=== PATIENT | female | born 1945 | race Two or more races ===

== ENCOUNTER 2017-12-24 22:21 | Emergency (ER) | payer MEDICARE, OTHER ==
[~2017-12-24] VITALS: Ht 167.6 cm; Wt 81.6 kg
[2017-12-24 23:09] LABS: Basophils # (auto) 0.1 uL; Basophils % (auto) 0.8 % (0.0-2.0); Eosinophils # (auto) 0.4 uL; Eosinophils % (auto) 5.7 % (0.0-7.0); Hematocrit 39.6 % (41.0-53.0); Lymphocytes # (auto) 1.6 uL; Lymphocytes % (auto) 24.2 % (10.0-50.0); Mean Corpuscular Hemoglobin 29.8 pg (28.0-32.0); Mean Corpuscular Hgb Conc. 32.8 g/dL (32.0-36.0); Mean Corpuscular Volume 90.9 fL (80.0-100.0); Monocytes # (auto) 0.5 uL; Neutrophils # (auto) 4.1 uL; Neutrophils % (auto) 61.3 % (37.0-80.0); Nucleated Red Blood Cells % 0.1 %; Platelet Count (auto) 190 10^3/uL (140-450); Red Blood Cells 4.36 10^6/uL (4.5-5.90); Red Cell Distribution Width 13.9 % (11.8-14.3); White Blood Cell 6.7 10^3/uL (4.4-10.8)
[2017-12-24 23:31] LABS: Alanine Aminotransferase 23 U/L (16-61); Alkaline Phosphatase 87 U/L (45-117); Anion Gap 8 (5-15); Aspartate Aminotransferase 20 U/L (15-37); BUN/Creatinine Ratio 16.9; Bilirubin, Total 0.2 mg/dL (0.2-1.0); Blood Urea Nitrogen 15 mg/dL (7-18); Calcium 8.9 mg/dL (8.5-10.1); Carbon Dioxide 23 mmol/L (21-32); Chloride 110 mmol/L (98-107); GFR African American 108 mL/min; GFR Non-African American 89 mL/min; Glucose 109 mg/dL (74-106); Magnesium 2.5 mg/dL (1.6-2.6); Potassium 3.8 mmol/L (3.5-5.1); Sodium 141 mmol/L (136-145); Total Protein 6.6 g/dL (6.4-8.2)
[2017-12-25 01:10] LABS: INR 0.91 (0.9-1.15); Partial Thromboplastin Time 22.7 sec (22.64-33.71); Prothrombin Time 9.9 sec (9.37-12.3)
[2017-12-25] MEDS ORDERED: ALUM & MAG HYDROX-SIMETH LIQ(MAALOX) 30 ML PO ONE (07:15)
[2017-12-25] MEDS ORDERED: LIDOCAINE VISCOUS 2% 15ML UD PO ONE (07:15)
[2017-12-25] MEDS ORDERED: DONNATAL 5ml ORAL Elix (BELLADONNA ALK-PHENOBARB) PO ONE (07:15)
[2017-12-25 07:31] VITALS: BP 122/76
== END 2017-12-25 09:47 | disposition home or self-care (01) ==
LOC: EDBD 22:21 → EDSEX 22:29 → ER 22:29
DX: K29.70 Gastritis, unspecified, without bleeding (principal); K21.9 Gastro-esophageal reflux disease without esophagitis; R07.89 Other chest pain; Z88.1 Allergy status to other antibiotic agents; Z90.49 Acquired absence of other specified parts of digestive tract
CPT/HCPCS: 36415; 71046; 80053; 83735; 84484; 85025; 85610; 85730; 93005; 94761

== ENCOUNTER 2021-03-25 00:44 | Inpatient (IN) | payer MEDICARE, BC ==
[~2021-03-25] VITALS: Ht 154.9 cm; Wt 63.1 kg
[2021-03-25 01:23] LABS: Basophils # (auto) 0.1 10 ^3/uL (0-0.2); Basophils % (auto) 0.6 % (0.0-2.0); Eosinophils # (auto) 0 10 ^3/uL (0-0.8); Eosinophils % (auto) 0.3 % (0.0-7.0); Hematocrit 40.5 % (36.0-46.0); Hemoglobin 13.1 g/dL (12.2-16.2); Mean Corpuscular Hemoglobin 27.1 pg (28.0-32.0); Mean Corpuscular Hgb Conc. 32.4 g/dL (32.0-36.0); Mean Corpuscular Volume 83.8 fL (80.0-100.0); Monocytes # (auto) 0.5 10 ^3/uL (0-1.3); Monocytes % (auto) 4.8 % (0.0-12.0); Neutrophils % (auto) 84.3 % (37.0-80.0); Platelet Count (auto) 296 10^3/uL (140-450); Red Blood Cells 4.84 10^6/uL (4.0-5.20); Red Cell Distribution Width 15.6 % (11.8-14.3); White Blood Cell 9.5 10^3/uL (4.4-10.8)
[2021-03-25 01:40] LABS: Albumin 4.1 g/dL (3.4-5.0); Calcium 11.2 mg/dL (8.5-10.1); Potassium 3.3 mmol/L (3.5-5.1)
[2021-03-25 01:42] LABS: Lactic Acid w/Reflex 2.2 mmol/L (0.4-2.0)
[2021-03-25 01:43] LABS: Bilirubin, Total 0.3 mg/dL (0.2-1.0); Total Protein 8.8 g/dL (6.4-8.2)
[2021-03-25 01:49] LABS: Urine Bacteria FEW /hpf (None Seen); Urine Blood Negative /uL (Negative); Urine Budding Yeast MODERATE /hpf (None Seen); Urine Hyaline Cast MOD /lpf (0 - 2); Urine Mucus FEW (None Seen); Urine WBC 153 /hpf (0 - 5)
[2021-03-25] MEDS ORDERED: cefTRIAXone 1GM/50ML D5W 50 ML IV ONE (05:15)
[2021-03-25] MEDS ORDERED: LACTATED RINGER'S 1,000 ML IV ONE (06:00)
[2021-03-25] MEDS ORDERED: FAMOTIDINE (10MG/ML) 2ML VL IV ONE (06:15)
[2021-03-25] MEDS: POTASSIUM CHL 20MEQ/100ML 100 ML IV SCH ×2 (06:19→08:00)
[2021-03-25] MEDS ORDERED: SODIUM CHLORIDE 0.9% 1,000 ML IV ONE (08:15)
[2021-03-25] MEDS ORDERED: metroNIDAZOLE 500MG/100ML 100 ML IV ONE (08:15)
[2021-03-25] MEDS: D5W/SOD CHL 0.45%/KCL 20MEQ 1,000 ML IV SCH ×3 (09:30→20:23)
[2021-03-25] MEDS: FAMOTIDINE (10MG/ML) 2ML VL IV SCH ×2 (09:31→21:18)
[2021-03-25] MEDS: cefTRIAXone 1GM/50ML D5W 50 ML IV SCH (09:31)
[2021-03-25] MEDS ORDERED: FAMO40TA7 PO (11:46)
[2021-03-25 11:48] VITALS: BP 127/67
[2021-03-25 13:24] VITALS: BP 127/67
[2021-03-25] MEDS: metroNIDAZOLE 500MG/100ML 100 ML IV SCH ×2 (14:20→21:18)
[2021-03-25] MEDS: METOCLOPRAMIDE HCL 5MG/ml INJ 2ml VIAL IV SCH ×2 (14:20→21:18)
[2021-03-25 17:04] VITALS: BP 119/57
[2021-03-25] MEDS: ONDANSETRON HCL 4 MG/2 ML VIAL IV PRN (17:20)
[2021-03-25] MEDS: MORPHINE SULF INJ 2 MG/ML SYRINGE 1ML IV PRN (19:37)
[2021-03-25 22:00] VITALS: BP 138/65
[2021-03-26 05:00] VITALS: BP 99/53
[2021-03-26] MEDS: METOCLOPRAMIDE HCL 5MG/ml INJ 2ml VIAL IV SCH ×3 (05:11→22:03)
[2021-03-26] MEDS: metroNIDAZOLE 500MG/100ML 100 ML IV SCH ×3 (05:11→22:03)
[2021-03-26 06:08] LABS: Basophils # (auto) 0.1 10 ^3/uL (0-0.2); Basophils % (auto) 1.3 % (0.0-2.0); Eosinophils # (auto) 0.3 10 ^3/uL (0-0.8); Eosinophils % (auto) 5.5 % (0.0-7.0); Hematocrit 32.4 % (36.0-46.0); Hemoglobin 10.8 g/dL (12.2-16.2); Lymphocytes # (auto) 1.6 10 ^3/uL (0.4-5.4); Lymphocytes % (auto) 29.8 % (10.0-50.0); Mean Corpuscular Hemoglobin 28.2 pg (28.0-32.0); Mean Corpuscular Hgb Conc. 33.2 g/dL (32.0-36.0); Mean Corpuscular Volume 84.8 fL (80.0-100.0); Monocytes # (auto) 0.5 10 ^3/uL (0-1.3); Monocytes % (auto) 8.9 % (0.0-12.0); Neutrophils # (auto) 2.9 10 ^3/uL (1.6-8.6); Neutrophils % (auto) 54.5 % (37.0-80.0); Platelet Count (auto) 199 10^3/uL (140-450); Red Blood Cells 3.82 10^6/uL (4.0-5.20); Red Cell Distribution Width 15.3 % (11.8-14.3); White Blood Cell 5.3 10^3/uL (4.4-10.8)
[2021-03-26 06:35] LABS: Potassium 3.3 mmol/L (3.5-5.1)
[2021-03-26 06:42] LABS: Albumin 2.8 g/dL (3.4-5.0); Bilirubin, Total 0.3 mg/dL (0.2-1.0); Calcium 9.1 mg/dL (8.5-10.1); Total Protein 6.1 g/dL (6.4-8.2)
[2021-03-26 08:00] VITALS: BP 106/63
[2021-03-26] MEDS ORDERED: GASTROGRAFIN 120 ML SOL ONE (08:12)
[2021-03-26 09:00] VITALS: BP 106/63
[2021-03-26] MEDS: FAMOTIDINE (10MG/ML) 2ML VL IV SCH ×2 (10:11→22:03)
[2021-03-26] MEDS: cefTRIAXone 1GM/50ML D5W 50 ML IV SCH (10:12)
[2021-03-26 13:00] VITALS: BP 132/64
[2021-03-26] MEDS: D5W/SOD CHL 0.45%/KCL 20MEQ 1,000 ML IV SCH (16:00)
[2021-03-26 17:00] VITALS: BP 128/68
[2021-03-26] MEDS: ONDANSETRON HCL 4 MG/2 ML VIAL IV PRN (19:37)
[2021-03-26] MEDS: ACETAMINOPHEN 500 MG TAB PO PRN (19:37)
[2021-03-26] MEDS: LOPERAMIDE HCL 2 MG CAP PO PRN (22:04)
[2021-03-26 23:53] VITALS: BP 127/75
[2021-03-27] MEDS: MORPHINE SULF INJ 2 MG/ML SYRINGE 1ML IV PRN ×5 (00:34→23:01)
[2021-03-27] MEDS: D5W/SOD CHL 0.45%/KCL 20MEQ 1,000 ML IV SCH ×3 (01:38→21:17)
[2021-03-27] MEDS: ONDANSETRON HCL 4 MG/2 ML VIAL IV PRN ×2 (01:38→09:52)
[2021-03-27] MEDS: LOPERAMIDE HCL 2 MG CAP PO PRN (04:53)
[2021-03-27 05:38] VITALS: BP 131/70
[2021-03-27] MEDS: METOCLOPRAMIDE HCL 5MG/ml INJ 2ml VIAL IV SCH ×3 (05:44→21:17)
[2021-03-27] MEDS: metroNIDAZOLE 500MG/100ML 100 ML IV SCH ×3 (05:44→21:17)
[2021-03-27 07:20] LABS: Albumin 3.1 g/dL (3.4-5.0); Calcium 9.1 mg/dL (8.5-10.1); Magnesium 2.5 mg/dL (1.6-2.6); Potassium 3.3 mmol/L (3.5-5.1)
[2021-03-27 07:24] LABS: BUN/Creatinine Ratio 15.7; Bilirubin, Total 0.3 mg/dL (0.2-1.0); Total Protein 6.9 g/dL (6.4-8.2)
[2021-03-27] MEDS: cefTRIAXone 1GM/50ML D5W 50 ML IV SCH (08:00)
[2021-03-27 09:00] VITALS: BP 122/57
[2021-03-27] MEDS: FAMOTIDINE (10MG/ML) 2ML VL IV SCH (09:44)
[2021-03-27] MEDS ORDERED: POTASSIUM CHLORIDE 20 MEQ, LIDOCAINE 1% (LOCAL ANESTH.) 2 ML in SODIUM CHL 0.9% 100 ML IV ONE (11:30)
[2021-03-27 13:00] VITALS: BP 115/58
[2021-03-27 17:00] VITALS: BP 115/62
[2021-03-27] MEDS: PANTOPRAZOLE 40 MG/10 ML VIAL INJ IV SCH (21:17)
[2021-03-27 22:00] VITALS: BP 123/62
[2021-03-28 05:00] VITALS: BP 134/64
[2021-03-28] MEDS: METOCLOPRAMIDE HCL 5MG/ml INJ 2ml VIAL IV SCH ×3 (05:26→22:37)
[2021-03-28] MEDS: metroNIDAZOLE 500MG/100ML 100 ML IV SCH ×3 (05:26→22:36)
[2021-03-28] MEDS: D5W/SOD CHL 0.45%/KCL 20MEQ 1,000 ML IV SCH ×3 (06:32→15:58)
[2021-03-28 07:15] LABS: Basophils # (auto) 0.1 10 ^3/uL (0-0.2); Basophils % (auto) 0.9 % (0.0-2.0); Eosinophils # (auto) 0.2 10 ^3/uL (0-0.8); Eosinophils % (auto) 2.1 % (0.0-7.0); Hematocrit 35.1 % (36.0-46.0); Hemoglobin 11.5 g/dL (12.2-16.2); Lymphocytes # (auto) 0.9 10 ^3/uL (0.4-5.4); Lymphocytes % (auto) 10.8 % (10.0-50.0); Mean Corpuscular Hemoglobin 27.7 pg (28.0-32.0); Mean Corpuscular Hgb Conc. 32.8 g/dL (32.0-36.0); Mean Corpuscular Volume 84.3 fL (80.0-100.0); Monocytes # (auto) 0.7 10 ^3/uL (0-1.3); Monocytes % (auto) 8.5 % (0.0-12.0); Neutrophils # (auto) 6.6 10 ^3/uL (1.6-8.6); Neutrophils % (auto) 77.7 % (37.0-80.0); Nucleated Red Blood Cells % 0.1 %; Platelet Count (auto) 190 10^3/uL (140-450); Red Blood Cells 4.17 10^6/uL (4.0-5.20); Red Cell Distribution Width 15.5 % (11.8-14.3); White Blood Cell 8.5 10^3/uL (4.4-10.8)
[2021-03-28 07:29] LABS: Calcium 9.3 mg/dL (8.5-10.1); Potassium 3.4 mmol/L (3.5-5.1)
[2021-03-28 07:32] LABS: BUN/Creatinine Ratio 17.6
[2021-03-28 09:00] VITALS: BP 129/69
[2021-03-28 09:11] LABS: INR 1.1 (0.9-1.15)
[2021-03-28 09:13] LABS: Partial Thromboplastin Time < 20.0 sec (23.0-31.2)
[2021-03-28] MEDS: cefTRIAXone 1GM/50ML D5W 50 ML IV SCH (09:21)
[2021-03-28] MEDS: PANTOPRAZOLE 40 MG/10 ML VIAL INJ IV SCH ×2 (10:23→22:37)
[2021-03-28 13:00] VITALS: BP 115/59
[2021-03-28] MEDS: MORPHINE SULF INJ 2 MG/ML SYRINGE 1ML IV PRN ×2 (15:09→17:22)
[2021-03-28 17:00] VITALS: BP 125/57
[2021-03-28 22:00] VITALS: BP 114/65
[2021-03-29] MEDS: MORPHINE SULF INJ 2 MG/ML SYRINGE 1ML IV PRN (01:44)
[2021-03-29] MEDS: ONDANSETRON HCL 4 MG/2 ML VIAL IV PRN ×2 (02:09→09:40)
[2021-03-29 05:00] VITALS: BP 130/67
[2021-03-29] MEDS: metroNIDAZOLE 500MG/100ML 100 ML IV SCH ×3 (06:06→23:36)
[2021-03-29] MEDS: METOCLOPRAMIDE HCL 5MG/ml INJ 2ml VIAL IV SCH ×2 (06:06→14:00)
[2021-03-29 06:44] LABS: Calcium 9.4 mg/dL (8.5-10.1); Magnesium 2.2 mg/dL (1.6-2.6); Potassium 3.3 mmol/L (3.5-5.1)
[2021-03-29] MEDS ORDERED: LIDOCAINE VISCOUS 2% 15ML UD ONE (08:27)
[2021-03-29] MEDS ORDERED: MIDAZOLAM HCL 5 MG/ML-1ML VIAL ONE (08:27)
[2021-03-29] MEDS ORDERED: diphenhdrAMINE HCL 50 MG/1 ML VL ONE (08:27)
[2021-03-29] MEDS ORDERED: fentaNYL CITRATE 100 MCG/2 ML VL ONE ×2 (08:27→12:10)
[2021-03-29 08:46] VITALS: BP 119/63
[2021-03-29] MEDS: cefTRIAXone 1GM/50ML D5W 50 ML IV SCH (09:39)
[2021-03-29] MEDS: PANTOPRAZOLE 40 MG/10 ML VIAL INJ IV SCH ×2 (10:00→23:37)
[2021-03-29] MEDS ORDERED: MIDAZOLAM HCL 1MG/1ML-2 ML VIAL ONE (12:11)
[2021-03-29] MEDS ORDERED: POTASSIUM CHL 20MEQ/100ML 100 ML IV SCH (12:15)
[2021-03-29] MEDS ORDERED: LIDOCAINE 2% (LOCAL ANESTH.) PF 5ml SDV ONE (12:58)
[2021-03-29] MEDS ORDERED: PROPOFOL 10 MG/ML 20 ML IV ONE (12:58)
[2021-03-29] MEDS ORDERED: ONDANSETRON HCL 4 MG/2 ML VIAL IV PRN (13:15)
[2021-03-29] MEDS ORDERED: HYDROmorphone HCL 2 MG/ML VL IV PRN (13:15)
[2021-03-29] MEDS ORDERED: GADOTERATE MEG 7.5 MMOL/15ml INJ (0.5MMOL/ml) IV ONE (13:21)
[2021-03-29] MEDS ORDERED: TPN PER PHARMACY 0 ML IV SCH (16:00)
[2021-03-29] MEDS ORDERED: LIDOCAINE 1% (LOCAL ANESTH.) PF 5ml SDV ID ONE (16:00)
[2021-03-29 16:38] VITALS: BP 151/71
[2021-03-29] MEDS: InsuLIN REG 1unit/0.01ml Soln (100units/ml) SC SCH (18:00)
[2021-03-29] MEDS ORDERED: DEXTROSE (50%) 50ML SYRG IV SCH (18:00)
[2021-03-29] MEDS: ACCU-CHEK COMFORT CURVE STRIP VI SCH (18:27)
[2021-03-29 20:00] VITALS: BP 129/71
[2021-03-29] MEDS: AMINO ACID INFUSION IN D10W 1,000 ML IV NR ×2 (20:13→21:17)
[2021-03-29 22:00] VITALS: BP 127/63
[2021-03-29] MEDS: SODIUM CHLOR 0.9% PF (SALINE LOCK) 10ML VIAL/SYR IV SCH (22:00)
[2021-03-30] MEDS: D5W/SOD CHL 0.45%/KCL 20MEQ 1,000 ML IV SCH (03:15)
[2021-03-30 05:00] VITALS: BP 131/63
[2021-03-30] MEDS: InsuLIN REG 1unit/0.01ml Soln (100units/ml) SC SCH ×5 (06:00→23:36)
[2021-03-30] MEDS: ACCU-CHEK COMFORT CURVE STRIP VI SCH ×5 (06:00→23:36)
[2021-03-30] MEDS: metroNIDAZOLE 500MG/100ML 100 ML IV SCH ×3 (06:32→22:31)
[2021-03-30 06:56] LABS: Hematocrit 34.8 % (36.0-46.0); Hemoglobin 11.2 g/dL (12.2-16.2); Potassium 3.1 mmol/L (3.5-5.1)
[2021-03-30 07:00] LABS: Magnesium 1.8 mg/dL (1.6-2.6)
[2021-03-30 07:06] LABS: Albumin 2.5 g/dL (3.4-5.0); BUN/Creatinine Ratio 19.7; Bilirubin, Total 0.3 mg/dL (0.2-1.0); Calcium 8.9 mg/dL (8.5-10.1); Pre Albumin 12.5 mg/dL (20.0-40.0)
[2021-03-30 08:28] VITALS: BP 130/67
[2021-03-30] MEDS: ENOXAPARIN SOD 40 MG/0.4 ML SYRINGE SC SCH (08:51)
[2021-03-30] MEDS: cefTRIAXone 1GM/50ML D5W 50 ML IV SCH (08:51)
[2021-03-30] MEDS: PANTOPRAZOLE 40 MG/10 ML VIAL INJ IV SCH ×2 (08:51→22:31)
[2021-03-30] MEDS: POTASSIUM CHL 20MEQ/100ML 100 ML IV SCH ×2 (10:32→12:01)
[2021-03-30] MEDS: SODIUM CHLOR 0.9% PF (SALINE LOCK) 10ML VIAL/SYR IV SCH ×2 (10:32→22:00)
[2021-03-30] MEDS ORDERED: MAGNESIUM SULFATE 1GM/100ML 100 ML IV ONE (12:15)
[2021-03-30 13:00] VITALS: BP 121/66
[2021-03-30] MEDS ORDERED: SODIUM PHOSPHATES 40 MEQ in D5W 5% 250 ML IV ONE (13:00)
[2021-03-30 17:00] VITALS: BP 123/63
[2021-03-30] MEDS ORDERED: TPN PER PHARMACY IV NR ×10 (20:00)
[2021-03-30 22:00] VITALS: BP 137/72
[2021-03-31 05:00] VITALS: BP 123/55
[2021-03-31] MEDS ORDERED: ACETAMINOPHEN 325 MG TAB PO ONE (05:00)
[2021-03-31] MEDS: metroNIDAZOLE 500MG/100ML 100 ML IV SCH ×3 (05:37→22:21)
[2021-03-31] MEDS: ACCU-CHEK COMFORT CURVE STRIP VI SCH ×3 (05:58→18:21)
[2021-03-31] MEDS: InsuLIN REG 1unit/0.01ml Soln (100units/ml) SC SCH ×3 (05:58→18:20)
[2021-03-31 07:44] LABS: Albumin 2.4 g/dL (3.4-5.0); Calcium 8.6 mg/dL (8.5-10.1); Magnesium 2.2 mg/dL (1.6-2.6)
[2021-03-31 07:48] LABS: BUN/Creatinine Ratio 18.8; Bilirubin, Total 0.3 mg/dL (0.2-1.0); Phosphorus 1.3 mg/dL (2.5-4.90); Total Protein 5.9 g/dL (6.4-8.2)
[2021-03-31 07:51] LABS: Potassium 2.8 mmol/L (3.5-5.1)
[2021-03-31 08:45] VITALS: BP 122/60
[2021-03-31] MEDS: cefTRIAXone 1GM/50ML D5W 50 ML IV SCH (10:46)
[2021-03-31] MEDS: PANTOPRAZOLE 40 MG/10 ML VIAL INJ IV SCH ×2 (10:46→22:21)
[2021-03-31] MEDS: ENOXAPARIN SOD 40 MG/0.4 ML SYRINGE SC SCH (10:46)
[2021-03-31] MEDS: POTASSIUM CHL 20MEQ/100ML 100 ML IV SCH ×3 (10:47→15:15)
[2021-03-31] MEDS: SODIUM CHLOR 0.9% PF (SALINE LOCK) 10ML VIAL/SYR IV SCH ×2 (10:48→22:21)
[2021-03-31 13:33] VITALS: BP 127/64
[2021-03-31] MEDS ORDERED: SODIUM PHOSPHATES 40 MEQ in D5W 5% 250 ML IV ONE (15:00)
[2021-03-31] MEDS: ACETAMINOPHEN 500 MG TAB PO PRN (16:45)
[2021-03-31 17:00] VITALS: BP 124/57
[2021-03-31] MEDS ORDERED: TPN PER PHARMACY IV NR ×10 (20:00)
[2021-03-31 22:00] VITALS: BP 125/52
[2021-04-01] MEDS: InsuLIN REG 1unit/0.01ml Soln (100units/ml) SC SCH ×4 (01:09→18:03)
[2021-04-01 05:00] VITALS: BP 133/63
[2021-04-01] MEDS: metroNIDAZOLE 500MG/100ML 100 ML IV SCH ×3 (05:31→20:34)
[2021-04-01] MEDS: ACCU-CHEK COMFORT CURVE STRIP VI SCH ×4 (06:00→18:01)
[2021-04-01 09:00] VITALS: BP 127/56
[2021-04-01 09:01] LABS: Potassium 3.3 mmol/L (3.5-5.1)
[2021-04-01 09:18] LABS: Albumin 2.1 g/dL (3.4-5.0); BUN/Creatinine Ratio 19.4; Bilirubin, Total 0.3 mg/dL (0.2-1.0); Calcium 8.4 mg/dL (8.5-10.1); Magnesium 2.3 mg/dL (1.6-2.6); Phosphorus 1.3 mg/dL (2.5-4.90); Total Protein 5.8 g/dL (6.4-8.2)
[2021-04-01] MEDS: cefTRIAXone 1GM/50ML D5W 50 ML IV SCH (10:11)
[2021-04-01] MEDS: PANTOPRAZOLE 40 MG/10 ML VIAL INJ IV SCH ×2 (10:11→20:34)
[2021-04-01] MEDS: ENOXAPARIN SOD 40 MG/0.4 ML SYRINGE SC SCH ×2 (10:12→20:35)
[2021-04-01] MEDS: SODIUM CHLOR 0.9% PF (SALINE LOCK) 10ML VIAL/SYR IV SCH ×2 (10:13→20:34)
[2021-04-01] MEDS ORDERED: NYSTATIN (MOUTH-THROAT) 500,000 UNITS/5 ML SUSP MT ONE (10:45)
[2021-04-01] MEDS ORDERED: FLUCONAZOLE 200MG/100ML 100 ML IV ONE (10:45)
[2021-04-01] MEDS ORDERED: POTASSIUM PHOSPHATE 44 MEQ in D5W 5% 250 ML IV ONE (11:00)
[2021-04-01 11:20] LABS: Basophils # (auto) 0 10 ^3/uL (0-0.2); Basophils % (auto) 0.2 % (0.0-2.0); Eosinophils # (auto) 0.4 10 ^3/uL (0-0.8); Eosinophils % (auto) 2.5 % (0.0-7.0); Hematocrit 34.3 % (36.0-46.0); Hemoglobin 11.1 g/dL (12.2-16.2); Lymphocytes # (auto) 0.3 10 ^3/uL (0.4-5.4); Mean Corpuscular Hemoglobin 27.1 pg (28.0-32.0); Mean Corpuscular Hgb Conc. 32.5 g/dL (32.0-36.0); Mean Corpuscular Volume 83.2 fL (80.0-100.0); Monocytes # (auto) 0.8 10 ^3/uL (0-1.3); Monocytes % (auto) 4.6 % (0.0-12.0); Neutrophils # (auto) 15.4 10 ^3/uL (1.6-8.6); Neutrophils % (auto) 90.7 % (37.0-80.0); Platelet Count (auto) 120 10^3/uL (140-450); Red Blood Cells 4.12 10^6/uL (4.0-5.20); Red Cell Distribution Width 15.6 % (11.8-14.3); White Blood Cell 16.9 10^3/uL (4.4-10.8)
[2021-04-01 13:00] VITALS: BP 123/58
[2021-04-01 14:50] LABS: Urine Bacteria NONE SEEN /hpf (None Seen); Urine Blood TRACE /uL (Negative); Urine Mucus FEW (None Seen); Urine Specific Gravity 1.026 (1.001-1.035); Urine WBC 14 /hpf (0 - 5)
[2021-04-01 17:00] VITALS: BP 124/63
[2021-04-01] MEDS: NYSTATIN (MOUTH-THROAT) 500,000 UNITS/5 ML SUSP MT SCH ×2 (18:04→20:34)
[2021-04-01] MEDS ORDERED: TPN PER PHARMACY IV NR ×10 (20:00)
[2021-04-01 22:00] VITALS: BP 121/60
[2021-04-02] MEDS: ACCU-CHEK COMFORT CURVE STRIP VI SCH ×4 (00:09→17:54)
[2021-04-02] MEDS: InsuLIN REG 1unit/0.01ml Soln (100units/ml) SC SCH ×4 (00:12→17:55)
[2021-04-02 05:00] VITALS: BP 132/66
[2021-04-02] MEDS: NYSTATIN (MOUTH-THROAT) 500,000 UNITS/5 ML SUSP MT SCH ×4 (05:07→21:07)
[2021-04-02] MEDS: metroNIDAZOLE 500MG/100ML 100 ML IV SCH ×3 (05:07→21:07)
[2021-04-02 06:13] LABS: Basophils # (auto) 0 10 ^3/uL (0-0.2); Basophils % (auto) 0.3 % (0.0-2.0); Eosinophils % (auto) 11.3 % (0.0-7.0); Hematocrit 34.6 % (36.0-46.0); Hemoglobin 11.8 g/dL (12.2-16.2); Lymphocytes # (auto) 0.6 10 ^3/uL (0.4-5.4); Lymphocytes % (auto) 6.6 % (10.0-50.0); Mean Corpuscular Hemoglobin 28.2 pg (28.0-32.0); Mean Corpuscular Hgb Conc. 34.2 g/dL (32.0-36.0); Mean Corpuscular Volume 82.5 fL (80.0-100.0); Monocytes # (auto) 0.7 10 ^3/uL (0-1.3); Monocytes % (auto) 7.1 % (0.0-12.0); Neutrophils # (auto) 6.9 10 ^3/uL (1.6-8.6); Neutrophils % (auto) 74.7 % (37.0-80.0); Platelet Count (auto) 142 10^3/uL (140-450); Red Blood Cells 4.19 10^6/uL (4.0-5.20); Red Cell Distribution Width 15.7 % (11.8-14.3); White Blood Cell 9.3 10^3/uL (4.4-10.8)
[2021-04-02 06:39] LABS: Albumin 2.1 g/dL (3.4-5.0); BUN/Creatinine Ratio 19.4; Bilirubin, Total 0.2 mg/dL (0.2-1.0); Calcium 8.9 mg/dL (8.5-10.1); Magnesium 2.4 mg/dL (1.6-2.6); Phosphorus 2.5 mg/dL (2.5-4.90); Total Protein 6.1 g/dL (6.4-8.2)
[2021-04-02 09:00] VITALS: BP 117/62
[2021-04-02] MEDS: cefTRIAXone 1GM/50ML D5W 50 ML IV SCH (09:44)
[2021-04-02] MEDS: ENOXAPARIN SOD 40 MG/0.4 ML SYRINGE SC SCH (09:44)
[2021-04-02] MEDS: PANTOPRAZOLE 40 MG/10 ML VIAL INJ IV SCH ×2 (09:44→21:07)
[2021-04-02] MEDS: FLUCONAZOLE 200MG/100ML 100 ML IV SCH (09:44)
[2021-04-02] MEDS: SODIUM CHLOR 0.9% PF (SALINE LOCK) 10ML VIAL/SYR IV SCH ×2 (09:44→21:07)
[2021-04-02] MEDS ORDERED: ENOXAPARIN SOD 60 MG/0.6 ML SYRINGE SC ONE (10:30)
[2021-04-02 13:00] VITALS: BP 150/87
[2021-04-02 17:00] VITALS: BP 136/71
[2021-04-02] MEDS ORDERED: TPN PER PHARMACY IV NR ×10 (20:00)
[2021-04-02] MEDS: ENOXAPARIN SOD 60 MG/0.6 ML SYRINGE SC SCH (21:07)
[2021-04-02 22:00] VITALS: BP 118/66
[2021-04-03] MEDS: ACCU-CHEK COMFORT CURVE STRIP VI SCH ×4 (04:45→17:22)
[2021-04-03] MEDS: InsuLIN REG 1unit/0.01ml Soln (100units/ml) SC SCH ×4 (04:47→17:55)
[2021-04-03] MEDS: metroNIDAZOLE 500MG/100ML 100 ML IV SCH ×3 (04:48→22:07)
[2021-04-03] MEDS: NYSTATIN (MOUTH-THROAT) 500,000 UNITS/5 ML SUSP MT SCH ×4 (04:48→22:07)
[2021-04-03 05:00] VITALS: BP 129/64
[2021-04-03 06:01] LABS: Potassium 4.4 mmol/L (3.5-5.1)
[2021-04-03 06:10] LABS: Albumin 2.2 g/dL (3.4-5.0); BUN/Creatinine Ratio 24.2; Bilirubin, Total 0.3 mg/dL (0.2-1.0); Calcium 9.1 mg/dL (8.5-10.1); Magnesium 2.5 mg/dL (1.6-2.6); Phosphorus 2.4 mg/dL (2.5-4.90); Total Protein 6.2 g/dL (6.4-8.2)
[2021-04-03 08:30] VITALS: BP 122/70
[2021-04-03] MEDS: cefTRIAXone 1GM/50ML D5W 50 ML IV SCH (09:39)
[2021-04-03] MEDS: PANTOPRAZOLE 40 MG/10 ML VIAL INJ IV SCH ×2 (09:39→22:07)
[2021-04-03] MEDS: SODIUM CHLOR 0.9% PF (SALINE LOCK) 10ML VIAL/SYR IV SCH ×2 (09:40→22:07)
[2021-04-03] MEDS: ENOXAPARIN SOD 60 MG/0.6 ML SYRINGE SC SCH ×2 (09:40→22:07)
[2021-04-03] MEDS ORDERED: MICONAZOLE NITRATE 2 % VAGINAL CREAM 45 GM PV ONE (10:30)
[2021-04-03] MEDS: FLUCONAZOLE 200MG/100ML 100 ML IV SCH (11:00)
[2021-04-03] MEDS ORDERED: SODIUM PHOSPHATES 20 MEQ in SODIUM CHL 0.9% 100 ML IV ONE (12:00)
[2021-04-03 12:30] VITALS: BP 126/72
[2021-04-03] MEDS: MORPHINE SULF INJ 2 MG/ML SYRINGE 1ML IV PRN (16:31)
[2021-04-03 17:00] VITALS: BP 114/69
[2021-04-03] MEDS ORDERED: TPN PER PHARMACY IV NR ×10 (20:00)
[2021-04-03] MEDS ORDERED: MICONAZOLE NITRATE 2 % VAGINAL CREAM 45 GM PV SCH (22:00)
[2021-04-03 22:25] VITALS: BP 117/59
== END 2021-04-03 23:38 | disposition short-term general hospital (02) | DRG 374 ==
LOC: ER 00:44 → OVERFLOW 08:49 → CENTRAL 11:27 → TELE-CENTR 03-30 03:39
PROVIDERS: ADMIT Nurse Practitioner Acute Care; ATTEND Internal Medicine
PROC: 0DB78ZX Excision of Stomach, Pylorus, Via Natural or Artificial Opening Endoscopic, Diagnostic (ICD-10-PCS; 2021-03-29)
PROC: 0DB58ZX Excision of Esophagus, Via Natural or Artificial Opening Endoscopic, Diagnostic (ICD-10-PCS; 2021-03-29)
PROC: 02HV33Z Insertion of Infusion Device into Superior Vena Cava, Percutaneous Approach (ICD-10-PCS; 2021-03-29)
PROC: 0DB98ZX Excision of Duodenum, Via Natural or Artificial Opening Endoscopic, Diagnostic (ICD-10-PCS; principal; 2021-03-29 12:20)
PROC: 0D9670Z Drainage of Stomach with Drainage Device, Via Natural or Artificial Opening (ICD-10-PCS; 2021-03-30)
DX: C17.0 Malignant neoplasm of duodenum (principal); J69.0 Pneumonitis due to inhalation of food and vomit; A41.9 Sepsis, unspecified organism; N17.0 Acute kidney failure with tubular necrosis; I82.220 Acute embolism and thrombosis of inferior vena cava; K56.609 Unspecified intestinal obstruction, unspecified as to partial versus complete obstruction; E44.0 Moderate protein-calorie malnutrition; J90 Pleural effusion, not elsewhere classified; K22.10 Ulcer of esophagus without bleeding; K80.10 Calculus of gallbladder with chronic cholecystitis without obstruction; N30.00 Acute cystitis without hematuria; Z20.822 Contact with and (suspected) exposure to COVID-19; E86.0 Dehydration; K21.00 Gastro-esophageal reflux disease with esophagitis, without bleeding; K44.9 Diaphragmatic hernia without obstruction or gangrene; E04.2 Nontoxic multinodular goiter; E87.6 Hypokalemia; E83.52 Hypercalcemia; M79.3 Panniculitis, unspecified; I70.0 Atherosclerosis of aorta; K76.89 Other specified diseases of liver; M19.90 Unspecified osteoarthritis, unspecified site; B37.9 Candidiasis, unspecified; K29.70 Gastritis, unspecified, without bleeding; Z79.899 Other long term (current) drug therapy; Z79.891 Long term (current) use of opiate analgesic; Z79.01 Long term (current) use of anticoagulants; Z98.49 Cataract extraction status, unspecified eye; Z88.8 Allergy status to other drugs, medicaments and biological substances; Z90.49 Acquired absence of other specified parts of digestive tract
CPT/HCPCS: 36415; 36569; 71045; 74018; 74176; 74183; 74250; 76705; 78226; 80048; 80053; 81001; 82040; 82150; 82962; 83605; 83690; 83735; 83970; 84100; 84132; 84443; 84478; 84484; 85014; 85018; 85025; 85610; 85730; 87040; 87086; 87426; 93005; 96361; 96365; 96367; 96375; C9113; G0378; J0696; J1450; J1815; J2001; J2250; J2405; J2704; J3480; J3490; J7060

== ENCOUNTER 2021-07-12 04:16 | Inpatient (IN) | payer MEDICARE, BC ==
[~2021-07-12] VITALS: Ht 157.5 cm; Wt 48.2 kg
[~2021-07-12 04:16] MED LIST: FAMO40TA7 PO
[2021-07-12] MEDS ORDERED: VANCOMYCIN HCL 125MG/5ML ORAL SOL PO ONE (05:00)
[2021-07-12] MEDS ORDERED: SODIUM CHLORIDE 0.9% 1,000 ML IV ONE (05:00)
[2021-07-12] MEDS ORDERED: metroNIDAZOLE 500MG/100ML 100 ML IV ONE (05:15)
[2021-07-12 06:19] LABS: Basophils # (auto) 0 10 ^3/uL (0-0.2); Eosinophils # (auto) 0.2 10 ^3/uL (0-0.8); Monocytes # (auto) 0.5 10 ^3/uL (0-1.3); White Blood Cell 3.9 10^3/uL (4.4-10.8)
[2021-07-12 06:22] LABS: Basophils % (auto) 0.9 % (0.0-2.0); Eosinophils % (auto) 5.2 % (0.0-7.0); Hematocrit 34.1 % (36.0-46.0); Hemoglobin 10.7 g/dL (12.2-16.2); Lymphocytes % (auto) 25.6 % (10.0-50.0); Mean Corpuscular Hemoglobin 25.5 pg (28.0-32.0); Mean Corpuscular Hgb Conc. 31.6 g/dL (32.0-36.0); Mean Corpuscular Volume 80.7 fL (80.0-100.0); Monocytes % (auto) 11.9 % (0.0-12.0); Neutrophils # (auto) 2.2 10 ^3/uL (1.6-8.6); Neutrophils % (auto) 56.4 % (37.0-80.0); Nucleated Red Blood Cells % 0.3 %; Red Blood Cells 4.22 10^6/uL (4.0-5.20)
[2021-07-12 06:30] LABS: INR 1.09 (0.9-1.15); Partial Thromboplastin Time 24.7 sec (23.6-33.0)
[2021-07-12 06:35] LABS: Albumin 2.9 g/dL (3.4-5.0); Calcium 10.2 mg/dL (8.5-10.1); Potassium 3.5 mmol/L (3.5-5.1)
[2021-07-12 06:36] LABS: BUN/Creatinine Ratio 11.9
[2021-07-12 06:39] LABS: Bilirubin, Total 0.3 mg/dL (0.2-1.0); Total Protein 7.1 g/dL (6.4-8.2)
[2021-07-12 08:03] LABS: Urine Bacteria NONE SEEN /hpf (None Seen); Urine Blood Negative /uL (Negative); Urine Hyaline Cast FEW /lpf (0 - 2); Urine Mucus FEW (None Seen); Urine Specific Gravity 1.008 (1.001-1.035); Urine WBC 13 /hpf (0 - 5)
[2021-07-12] MEDS ORDERED: NITROGLYCERIN 0.4 MG SL TAB SL PRN (08:45)
[2021-07-12] MEDS ORDERED: ACETAMINOPHEN 500 MG TAB PO PRN (08:45)
[2021-07-12] MEDS ORDERED: MORPHINE SULFATE INJECTION 2 MG/ML SYRG IV PRN ×2 (08:45)
[2021-07-12] MEDS: PANTOPRAZOLE 40 MG/10 ML VIAL INJ IV SCH (10:25)
[2021-07-12] MEDS: ENOXAPARIN SOD 60 MG/0.6 ML SYRINGE SC SCH ×2 (10:26→21:12)
[2021-07-12] MEDS: VANCOMYCIN HCL 125MG/5ML ORAL SOL PO SCH ×3 (12:00→21:12)
[2021-07-12] MEDS: NYSTATIN (MOUTH-THROAT) 500,000 UNITS/5 ML SUSP MT SCH ×3 (12:58→21:12)
[2021-07-12] MEDS: Ensure HIGH Protein Chocolate 8oz Bottle PO SCH ×2 (14:35→18:27)
[2021-07-12 14:48] VITALS: BP 104/48
[2021-07-12] MEDS: metroNIDAZOLE 500MG/100ML 100 ML IV SCH ×2 (16:57→21:12)
[2021-07-12] MEDS ORDERED: PROC10TA2 PO (18:54)
[2021-07-12] MEDS ORDERED: [UNRECOGNIZED DRUG - CODE] PO (18:54)
[2021-07-12] MEDS ORDERED: NYS5LQ MT (18:54)
[2021-07-12] MEDS ORDERED: ENO40SY SC (18:54)
[2021-07-12] MEDS ORDERED: ONDA-144 PO (18:54)
[2021-07-12] MEDS ORDERED: TRIA0.02 TOP (18:54)
[2021-07-12] MEDS ORDERED: [UNRECOGNIZED DRUG - CODE] PO (18:54)
[2021-07-12 22:09] VITALS: BP 122/63
[2021-07-13 05:12] VITALS: BP 124/67
[2021-07-13 05:17] LABS: Basophils # (auto) 0 10 ^3/uL (0-0.2); Eosinophils # (auto) 0.2 10 ^3/uL (0-0.8); Lymphocytes # (auto) 0.8 10 ^3/uL (0.4-5.4); Monocytes # (auto) 0.4 10 ^3/uL (0-1.3); Neutrophils # (auto) 0.8 10 ^3/uL (1.6-8.6); Red Cell Distribution Width 19.6 % (11.8-14.3); White Blood Cell 2.3 10^3/uL (4.4-10.8)
[2021-07-13 05:20] LABS: Basophils % (auto) 1.4 % (0.0-2.0); Eosinophils % (auto) 8.9 % (0.0-7.0); Hematocrit 31.6 % (36.0-46.0); Hemoglobin 9.9 g/dL (12.2-16.2); Lymphocytes % (auto) 37.3 % (10.0-50.0); Mean Corpuscular Hgb Conc. 31.3 g/dL (32.0-36.0); Mean Corpuscular Volume 83.2 fL (80.0-100.0); Monocytes % (auto) 18.2 % (0.0-12.0); Neutrophils % (auto) 34.2 % (37.0-80.0); Nucleated Red Blood Cells % 0.6 %
[2021-07-13] MEDS: NYSTATIN (MOUTH-THROAT) 500,000 UNITS/5 ML SUSP MT SCH ×4 (05:24→20:44)
[2021-07-13] MEDS: metroNIDAZOLE 500MG/100ML 100 ML IV SCH ×3 (05:24→20:44)
[2021-07-13] MEDS: VANCOMYCIN HCL 125MG/5ML ORAL SOL PO SCH ×4 (05:25→20:44)
[2021-07-13 05:41] LABS: Anion Gap 11 (5-15); BUN/Creatinine Ratio 7.3; Blood Urea Nitrogen 3 mg/dL (7-18); Calcium 9.2 mg/dL (8.5-10.1); Carbon Dioxide 18 mmol/L (21-32); Chloride 114 mmol/L (98-107); GFR African American 194 mL/min; GFR Non-African American 161 mL/min; Glucose 88 mg/dL (74-106); Sodium 143 mmol/L (136-145)
[2021-07-13 05:51] LABS: Potassium 2.6 mmol/L (3.5-5.1)
[2021-07-13] MEDS: Ensure HIGH Protein Chocolate 8oz Bottle PO SCH ×3 (08:22→17:50)
[2021-07-13] MEDS: ENOXAPARIN SOD 60 MG/0.6 ML SYRINGE SC SCH ×2 (08:53→20:44)
[2021-07-13] MEDS: PANTOPRAZOLE 40 MG/10 ML VIAL INJ IV SCH (08:53)
[2021-07-13] MEDS: POTASSIUM CHL 20MEQ/100ML 100 ML IV SCH ×3 (08:53→21:18)
[2021-07-13 09:00] VITALS: BP 113/58
[2021-07-13 13:00] VITALS: BP 127/68
[2021-07-13 17:00] VITALS: BP 117/62
[2021-07-13] MEDS ORDERED: POTASSIUM CHL 20MEQ/100ML 100 ML IV SCH (20:30)
[2021-07-13 22:00] VITALS: BP 110/56
[2021-07-14 05:00] VITALS: BP 99/58
[2021-07-14] MEDS: metroNIDAZOLE 500MG/100ML 100 ML IV SCH ×3 (05:07→21:12)
[2021-07-14] MEDS: NYSTATIN (MOUTH-THROAT) 500,000 UNITS/5 ML SUSP MT SCH ×4 (05:07→21:12)
[2021-07-14] MEDS: VANCOMYCIN HCL 125MG/5ML ORAL SOL PO SCH ×4 (05:08→21:13)
[2021-07-14 07:56] LABS: Hematocrit 29.6 % (36.0-46.0); Hemoglobin 9.5 g/dL (12.2-16.2); Mean Corpuscular Hemoglobin 25.6 pg (28.0-32.0)
[2021-07-14 07:59] LABS: Mean Corpuscular Hgb Conc. 32.1 g/dL (32.0-36.0); Mean Corpuscular Volume 79.8 fL (80.0-100.0); Red Cell Distribution Width 19.4 % (11.8-14.3)
[2021-07-14 08:04] LABS: White Blood Cell 1.6 10^3/uL (4.4-10.8)
[2021-07-14 08:05] LABS: Basophils % (manual) 0 (0.0-2.0); Blast Cells 0; Metamyelocytes % 0; Myelocytes % 0; Promyelocytes % 0; Reactive Lymphocytes 0
[2021-07-14 08:28] LABS: Band Neutrophils % (manual) 2; Eosinophils % (manual) 15 (0-7); Lymphocytes % (manual) 38 (10.0-50.0); Monocytes % (manual) 15 (0-12)
[2021-07-14 08:40] VITALS: BP 115/54
[2021-07-14] MEDS ORDERED: POTASSIUM EFFERVESENT TAB 25 MEQ PO ONE (09:00)
[2021-07-14] MEDS ORDERED: POTASSIUM CHLORIDE 40 MEQ, LIDOCAINE 1% (LOCAL ANESTH.) 4 ML in SODIUM CHL 0.9% 250 ML IV ONE (09:00)
[2021-07-14] MEDS: Ensure HIGH Protein Chocolate 8oz Bottle PO SCH ×3 (09:05→18:00)
[2021-07-14] MEDS: ENOXAPARIN SOD 60 MG/0.6 ML SYRINGE SC SCH ×2 (09:34→21:12)
[2021-07-14] MEDS: PANTOPRAZOLE 40 MG/10 ML VIAL INJ IV SCH (09:34)
[2021-07-14 12:40] VITALS: BP 111/69
[2021-07-14 17:00] VITALS: BP 112/56
[2021-07-14 22:00] VITALS: BP 105/58
[2021-07-15] MEDS: metroNIDAZOLE 500MG/100ML 100 ML IV SCH ×2 (05:10→14:09)
[2021-07-15] MEDS: NYSTATIN (MOUTH-THROAT) 500,000 UNITS/5 ML SUSP MT SCH ×4 (05:10→21:57)
[2021-07-15] MEDS: VANCOMYCIN HCL 125MG/5ML ORAL SOL PO SCH ×4 (05:11→21:58)
[2021-07-15 05:17] LABS: Hemoglobin 10.4 g/dL (12.2-16.2)
[2021-07-15 05:20] LABS: Hematocrit 32.5 % (36.0-46.0); Mean Corpuscular Hemoglobin 25.6 pg (28.0-32.0); Mean Corpuscular Volume 80.1 fL (80.0-100.0); Red Blood Cells 4.06 10^6/uL (4.0-5.20)
[2021-07-15 05:24] VITALS: BP 104/60
[2021-07-15 05:25] LABS: Red Cell Distribution Width 20.1 % (11.8-14.3)
[2021-07-15 05:27] LABS: Basophils % (manual) 0 (0.0-2.0); Blast Cells 0; Metamyelocytes % 0; Myelocytes % 0; Promyelocytes % 0; Reactive Lymphocytes 0
[2021-07-15 05:40] LABS: Calcium 9.9 mg/dL (8.5-10.1); Chloride 114 mmol/L (98-107); Potassium 3.1 mmol/L (3.5-5.1); Sodium 145 mmol/L (136-145)
[2021-07-15 05:44] LABS: Anion Gap 6 (5-15); BUN/Creatinine Ratio 1.8; Blood Urea Nitrogen < 1 mg/dL (7-18); Carbon Dioxide 25 mmol/L (21-32); GFR African American 139 mL/min; GFR Non-African American 115 mL/min; Glucose 113 mg/dL (74-106)
[2021-07-15 06:50] LABS: Band Neutrophils % (manual) 8; Eosinophils % (manual) 8 (0-7); Lymphocytes % (manual) 49 (10.0-50.0); Monocytes % (manual) 23 (0-12)
[2021-07-15 09:14] VITALS: BP 107/59
[2021-07-15] MEDS: PANTOPRAZOLE 40 MG/10 ML VIAL INJ IV SCH (10:30)
[2021-07-15] MEDS: ENOXAPARIN SOD 60 MG/0.6 ML SYRINGE SC SCH ×2 (10:30→21:57)
[2021-07-15] MEDS: Ensure HIGH Protein Chocolate 8oz Bottle PO SCH ×3 (10:30→18:00)
[2021-07-15 13:00] VITALS: BP 112/64
[2021-07-15] MEDS ORDERED: POTASSIUM EFFERVESENT TAB 25 MEQ PO ONE (14:30)
[2021-07-15 17:00] VITALS: BP 117/80
[2021-07-15] MEDS ORDERED: POTASSIUM EFFERVESENT TAB 25 MEQ ONE (17:20)
[2021-07-15] MEDS: FLORASTOR (S. BOULARDII) 250 MG CAP PO SCH (21:57)
[2021-07-15] MEDS: metroNIDAZOLE 500 MG TAB PO SCH (21:57)
[2021-07-15 22:00] VITALS: BP 92/48
[2021-07-16 05:00] VITALS: BP 97/41
[2021-07-16] MEDS: NYSTATIN (MOUTH-THROAT) 500,000 UNITS/5 ML SUSP MT SCH ×4 (05:56→21:18)
[2021-07-16] MEDS: VANCOMYCIN HCL 125MG/5ML ORAL SOL PO SCH ×4 (05:56→21:18)
[2021-07-16] MEDS: metroNIDAZOLE 500 MG TAB PO SCH ×3 (05:56→21:18)
[2021-07-16 06:06] LABS: Mean Corpuscular Hemoglobin 25.9 pg (28.0-32.0); White Blood Cell 2.1 10^3/uL (4.4-10.8)
[2021-07-16 06:12] LABS: Hematocrit 29.9 % (36.0-46.0); Hemoglobin 9.5 g/dL (12.2-16.2); Red Blood Cells 3.68 10^6/uL (4.0-5.20)
[2021-07-16 06:21] LABS: Calcium 9.7 mg/dL (8.5-10.1); Magnesium 2.1 mg/dL (1.6-2.6); Potassium 3.1 mmol/L (3.5-5.1)
[2021-07-16 06:23] LABS: BUN/Creatinine Ratio 4.3
[2021-07-16 06:24] LABS: Band Neutrophils % (manual) 0; Basophils % (manual) 0 (0.0-2.0); Blast Cells 0; Metamyelocytes % 0; Myelocytes % 0; Promyelocytes % 0; Reactive Lymphocytes 0
[2021-07-16] MEDS: Ensure HIGH Protein Chocolate 8oz Bottle PO SCH ×3 (08:00→18:00)
[2021-07-16 08:03] LABS: Eosinophils % (manual) 5 (0-7); Lymphocytes % (manual) 46 (10.0-50.0); Monocytes % (manual) 23 (0-12)
[2021-07-16 09:00] VITALS: BP 97/51
[2021-07-16] MEDS: PANTOPRAZOLE 40 MG/10 ML VIAL INJ IV SCH (10:28)
[2021-07-16] MEDS: ENOXAPARIN SOD 60 MG/0.6 ML SYRINGE SC SCH ×2 (10:28→21:18)
[2021-07-16] MEDS: FLORASTOR (S. BOULARDII) 250 MG CAP PO SCH ×2 (10:28→21:18)
[2021-07-16] MEDS ORDERED: CLINIMIX PER PHARMACY 0 ML IV SCH (12:00)
[2021-07-16] MEDS ORDERED: D5W/SOD CHL 0.45%/KCL 40MEQ 1,000 ML IV SCH (12:00)
[2021-07-16] MEDS ORDERED: POTASSIUM EFFERVESENT TAB 25 MEQ PO ONE (12:00)
[2021-07-16 13:00] VITALS: BP 118/61
[2021-07-16 17:00] VITALS: BP 99/68
[2021-07-16] MEDS ORDERED: DIPHENOXYLATE W/ATROPINE 2.5 MG TAB PO PRN (18:15)
[2021-07-16] MEDS ORDERED: AMINO ACID INFUSION IN D10W 1,000 ML IV NR (20:00)
[2021-07-16 22:00] VITALS: BP 122/65
[2021-07-17] MEDS ORDERED: DEXTROSE (50%) 50ML SYRG IV SCH
[2021-07-17] MEDS: InsuLIN REG 1unit/0.01ml Soln (100units/ml) SC SCH ×5 (01:21→23:20)
[2021-07-17 05:00] VITALS: BP 97/59
[2021-07-17 05:30] LABS: Mean Corpuscular Hemoglobin 25.5 pg (28.0-32.0); Mean Corpuscular Hgb Conc. 31.5 g/dL (32.0-36.0)
[2021-07-17 05:36] LABS: Hematocrit 32.7 % (36.0-46.0); Hemoglobin 10.3 g/dL (12.2-16.2); Mean Corpuscular Volume 80.9 fL (80.0-100.0); Red Blood Cells 4.04 10^6/uL (4.0-5.20); White Blood Cell 2.5 10^3/uL (4.4-10.8)
[2021-07-17] MEDS: NYSTATIN (MOUTH-THROAT) 500,000 UNITS/5 ML SUSP MT SCH ×4 (05:50→22:17)
[2021-07-17] MEDS: metroNIDAZOLE 500 MG TAB PO SCH (05:51)
[2021-07-17] MEDS: VANCOMYCIN HCL 125MG/5ML ORAL SOL PO SCH (05:51)
[2021-07-17] MEDS: ACCU-CHEK COMFORT CURVE STRIP VI SCH ×5 (05:51→23:20)
[2021-07-17 06:26] LABS: Red Cell Distribution Width 21.3 % (11.8-14.3)
[2021-07-17 06:27] LABS: Basophils % (manual) 0 (0.0-2.0); Blast Cells 0; Metamyelocytes % 0; Myelocytes % 0; Promyelocytes % 0; Reactive Lymphocytes 0
[2021-07-17 06:32] LABS: Albumin 2.5 g/dL (3.4-5.0); BUN/Creatinine Ratio 4.9; Calcium 10.1 mg/dL (8.5-10.1); Magnesium 2.1 mg/dL (1.6-2.6)
[2021-07-17 06:35] LABS: Bilirubin, Total 0.2 mg/dL (0.2-1.0); Phosphorus 2.7 mg/dL (2.5-4.90); Total Protein 5.8 g/dL (6.4-8.2)
[2021-07-17 07:52] LABS: Band Neutrophils % (manual) 3; Eosinophils % (manual) 6 (0-7); Lymphocytes % (manual) 50 (10.0-50.0); Monocytes % (manual) 22 (0-12)
[2021-07-17] MEDS: Ensure HIGH Protein Chocolate 8oz Bottle PO SCH ×3 (08:00→17:46)
[2021-07-17 09:00] VITALS: BP 125/66
[2021-07-17] MEDS: POTASSIUM CHL 20MEQ/100ML 100 ML IV SCH ×2 (09:56→11:52)
[2021-07-17] MEDS: ENOXAPARIN SOD 60 MG/0.6 ML SYRINGE SC SCH ×2 (09:56→22:18)
[2021-07-17] MEDS: FLORASTOR (S. BOULARDII) 250 MG CAP PO SCH ×2 (09:56→22:18)
[2021-07-17] MEDS: CHOLESTYRAMINE 4 GM POWDER GT SCH (09:56)
[2021-07-17] MEDS ORDERED: POTASSIUM EFFERVESENT TAB 25 MEQ PO ONE (11:30)
[2021-07-17] MEDS: VANCOMYCIN HCL 500MG/5ML ORAL SOL PO SCH ×3 (12:17→22:18)
[2021-07-17] MEDS: metroNIDAZOLE 500MG/100ML 100 ML IV SCH ×2 (14:55→22:17)
[2021-07-17 17:00] VITALS: BP 111/53
[2021-07-17] MEDS ORDERED: AMINO ACID INFUSION IN D10W 1,000 ML IV NR (20:00)
[2021-07-17 22:00] VITALS: BP 117/69
[2021-07-18 05:00] VITALS: BP 109/60
[2021-07-18] MEDS: ACCU-CHEK COMFORT CURVE STRIP VI SCH ×4 (06:00→22:14)
[2021-07-18 06:34] LABS: Albumin 2.4 g/dL (3.4-5.0); Calcium 9.4 mg/dL (8.5-10.1)
[2021-07-18 06:40] LABS: BUN/Creatinine Ratio 10.6; Bilirubin, Total 0.2 mg/dL (0.2-1.0); Phosphorus 1.9 mg/dL (2.5-4.90); Pre Albumin 9.8 mg/dL (20.0-40.0); Total Protein 5.6 g/dL (6.4-8.2)
[2021-07-18] MEDS: NYSTATIN (MOUTH-THROAT) 500,000 UNITS/5 ML SUSP MT SCH ×4 (07:05→22:13)
[2021-07-18] MEDS: metroNIDAZOLE 500MG/100ML 100 ML IV SCH ×3 (07:05→22:12)
[2021-07-18] MEDS: InsuLIN REG 1unit/0.01ml Soln (100units/ml) SC SCH ×3 (07:06→18:00)
[2021-07-18] MEDS: Ensure HIGH Protein Chocolate 8oz Bottle PO SCH (08:00)
[2021-07-18 09:29] VITALS: BP 110/62
[2021-07-18] MEDS: FLORASTOR (S. BOULARDII) 250 MG CAP PO SCH ×2 (10:11→22:13)
[2021-07-18] MEDS: CHOLESTYRAMINE 4 GM POWDER GT SCH (10:11)
[2021-07-18] MEDS: VANCOMYCIN HCL 500MG/5ML ORAL SOL PO SCH ×4 (10:12→22:13)
[2021-07-18] MEDS: ENOXAPARIN SOD 60 MG/0.6 ML SYRINGE SC SCH ×2 (10:12→22:14)
[2021-07-18] MEDS ORDERED: POTASSIUM EFFERVESENT TAB 25 MEQ PO ONE (11:30)
[2021-07-18 12:37] VITALS: BP 122/68
[2021-07-18] MEDS: ONDANSETRON HCL 4 MG/2 ML VIAL IV PRN (13:02)
[2021-07-18] MEDS ORDERED: POTASSIUM (KCL) 40 MEQ,LIDOCAINE 1% 4 ML in NS 250 ML IV ONE ×3 (13:15)
[2021-07-18] MEDS ORDERED: POTASSIUM CHLORIDE 60 MEQ, LIDOCAINE 1% (LOCAL ANESTH.) 6 ML in SODIUM CHL 0.9% 500 ML IV ONE (13:15)
[2021-07-18] MEDS ORDERED: POTASSIUM PHOSP 26.4MEQ(18MMOL) IN NS 100 ML IV ONE ×2 (13:30→17:30)
[2021-07-18 16:54] VITALS: BP 116/70
[2021-07-18] MEDS ORDERED: POTASSIUM PHOSP 22MEQ(15MMOLE) in NS 100 ML IV ONE (17:30)
[2021-07-18] MEDS ORDERED: AMINO ACID INFUSION IN D10W 1,000 ML IV NR (20:00)
[2021-07-18 22:00] VITALS: BP 102/56
[2021-07-19 05:00] VITALS: BP 112/66
[2021-07-19] MEDS: InsuLIN REG 1unit/0.01ml Soln (100units/ml) SC SCH ×5 (06:20→23:36)
[2021-07-19] MEDS: metroNIDAZOLE 500MG/100ML 100 ML IV SCH ×3 (06:20→23:07)
[2021-07-19] MEDS: NYSTATIN (MOUTH-THROAT) 500,000 UNITS/5 ML SUSP MT SCH ×4 (06:20→20:59)
[2021-07-19] MEDS: VANCOMYCIN HCL 500MG/5ML ORAL SOL PO SCH ×4 (06:20→20:59)
[2021-07-19] MEDS: ACCU-CHEK COMFORT CURVE STRIP VI SCH ×4 (06:20→23:34)
[2021-07-19 06:43] LABS: Albumin 2.1 g/dL (3.4-5.0); Potassium 3.4 mmol/L (3.5-5.1)
[2021-07-19 06:47] LABS: BUN/Creatinine Ratio 13.3; Bilirubin, Total 0.2 mg/dL (0.2-1.0); Phosphorus 2.4 mg/dL (2.5-4.90)
[2021-07-19 08:00] VITALS: BP 107/53
[2021-07-19] MEDS: FLORASTOR (S. BOULARDII) 250 MG CAP PO SCH ×2 (08:22→20:59)
[2021-07-19] MEDS: CHOLESTYRAMINE 4 GM POWDER GT SCH (08:22)
[2021-07-19] MEDS: ENOXAPARIN SOD 60 MG/0.6 ML SYRINGE SC SCH ×2 (08:23→20:59)
[2021-07-19 12:00] VITALS: BP 128/70
[2021-07-19] MEDS ORDERED: POTASSIUM CHLORIDE 40 MEQ, LIDOCAINE 1% (LOCAL ANESTH.) 4 ML in SODIUM CHL 0.9% 250 ML IV ONE (12:30)
[2021-07-19 16:00] VITALS: BP 128/76
[2021-07-19] MEDS ORDERED: SODIUM PHOSPHATES 10 MEQ in SODIUM CHL 0.9% 100 ML IV ONE (18:00)
[2021-07-19] MEDS: ONDANSETRON HCL 4 MG/2 ML VIAL IV PRN (18:17)
[2021-07-19] MEDS ORDERED: AMINO ACID INFUSION IN D10W 1,000 ML IV NR (20:00)
[2021-07-19] MEDS ORDERED: CALCIUM CARB 500 MG CHEW TAB PO PRN (21:30)
[2021-07-19 22:08] VITALS: BP 104/54
[2021-07-20 05:01] VITALS: BP 105/61
[2021-07-20] MEDS: VANCOMYCIN HCL 500MG/5ML ORAL SOL PO SCH ×4 (05:41→21:42)
[2021-07-20] MEDS: ACCU-CHEK COMFORT CURVE STRIP VI SCH ×2 (05:41→12:12)
[2021-07-20] MEDS: metroNIDAZOLE 500MG/100ML 100 ML IV SCH ×3 (05:41→21:41)
[2021-07-20] MEDS: NYSTATIN (MOUTH-THROAT) 500,000 UNITS/5 ML SUSP MT SCH ×4 (05:41→21:42)
[2021-07-20] MEDS: InsuLIN REG 1unit/0.01ml Soln (100units/ml) SC SCH ×2 (05:42→12:00)
[2021-07-20 07:16] LABS: Potassium 3.3 mmol/L (3.5-5.1)
[2021-07-20 07:25] LABS: Albumin 2.1 g/dL (3.4-5.0); BUN/Creatinine Ratio 15.4; Bilirubin, Total 0.2 mg/dL (0.2-1.0); Calcium 9.2 mg/dL (8.5-10.1); Magnesium 1.8 mg/dL (1.6-2.6); Phosphorus 2.6 mg/dL (2.5-4.90); Total Protein 5.2 g/dL (6.4-8.2)
[2021-07-20 09:00] VITALS: BP 113/69
[2021-07-20] MEDS: CHOLESTYRAMINE 4 GM POWDER GT SCH (09:00)
[2021-07-20] MEDS: ENOXAPARIN SOD 60 MG/0.6 ML SYRINGE SC SCH ×2 (09:00→21:43)
[2021-07-20] MEDS ORDERED: FAMOTIDINE 20 MG TAB PO ONE (11:45)
[2021-07-20] MEDS ORDERED: POTASSIUM CHLORIDE 40 MEQ, LIDOCAINE 1% (LOCAL ANESTH.) 4 ML in SODIUM CHL 0.9% 250 ML IV ONE (11:45)
[2021-07-20] MEDS: FLORASTOR (S. BOULARDII) 250 MG CAP PO SCH ×2 (12:12→21:43)
[2021-07-20 13:00] VITALS: BP 105/57
[2021-07-20 17:00] VITALS: BP 106/61
[2021-07-20 22:00] VITALS: BP 108/62
[2021-07-21 05:00] VITALS: BP 111/62
[2021-07-21] MEDS: metroNIDAZOLE 500MG/100ML 100 ML IV SCH ×3 (06:14→22:00)
[2021-07-21] MEDS: NYSTATIN (MOUTH-THROAT) 500,000 UNITS/5 ML SUSP MT SCH ×4 (06:14→22:00)
[2021-07-21] MEDS: VANCOMYCIN HCL 500MG/5ML ORAL SOL PO SCH ×4 (06:15→22:00)
[2021-07-21 06:32] LABS: Potassium 3.4 mmol/L (3.5-5.1)
[2021-07-21 06:42] LABS: Calcium 9.3 mg/dL (8.5-10.1)
[2021-07-21 09:00] VITALS: BP 114/77
[2021-07-21] MEDS: CHOLESTYRAMINE 4 GM POWDER GT SCH (09:03)
[2021-07-21] MEDS: ENOXAPARIN SOD 60 MG/0.6 ML SYRINGE SC SCH ×2 (09:04→22:01)
[2021-07-21] MEDS: FAMOTIDINE 20 MG TAB PO SCH (09:04)
[2021-07-21] MEDS: FLORASTOR (S. BOULARDII) 250 MG CAP PO SCH ×2 (09:04→22:01)
[2021-07-21 13:00] VITALS: BP 116/72
[2021-07-21 17:10] VITALS: BP 110/65
[2021-07-21] MEDS ORDERED: POTASSIUM CHL 20 Meq TABLET PO ONE (18:30)
[2021-07-21 22:00] VITALS: BP 118/63
[2021-07-22 05:00] VITALS: BP 119/70
[2021-07-22] MEDS: metroNIDAZOLE 500MG/100ML 100 ML IV SCH (05:33)
[2021-07-22] MEDS: VANCOMYCIN HCL 500MG/5ML ORAL SOL PO SCH ×4 (05:34→21:39)
[2021-07-22] MEDS: NYSTATIN (MOUTH-THROAT) 500,000 UNITS/5 ML SUSP MT SCH ×4 (05:34→21:38)
[2021-07-22 06:07] LABS: Basophils # (auto) 0.1 10 ^3/uL (0-0.2); Monocytes # (auto) 0.4 10 ^3/uL (0-1.3); Monocytes % (auto) 14.9 % (0.0-12.0); Neutrophils # (auto) 1.1 10 ^3/uL (1.6-8.6); Nucleated Red Blood Cells % 0.1 %; White Blood Cell 2.8 10^3/uL (4.4-10.8)
[2021-07-22 06:10] LABS: Basophils % (auto) 3.3 % (0.0-2.0); Eosinophils # (auto) 0 10 ^3/uL (0-0.8); Eosinophils % (auto) 1.7 % (0.0-7.0); Hematocrit 30.7 % (36.0-46.0); Hemoglobin 9.7 g/dL (12.2-16.2); Lymphocytes # (auto) 1.1 10 ^3/uL (0.4-5.4); Lymphocytes % (auto) 41.1 % (10.0-50.0); Mean Corpuscular Hemoglobin 25.9 pg (28.0-32.0); Mean Corpuscular Hgb Conc. 31.7 g/dL (32.0-36.0); Mean Corpuscular Volume 81.5 fL (80.0-100.0); Red Blood Cells 3.77 10^6/uL (4.0-5.20)
[2021-07-22 06:16] LABS: Red Cell Distribution Width 22.6 % (11.8-14.3)
[2021-07-22 06:17] LABS: INR 1.08 (0.9-1.15)
[2021-07-22 06:26] LABS: Albumin 2.1 g/dL (3.4-5.0); Calcium 9.3 mg/dL (8.5-10.1); Magnesium 2.2 mg/dL (1.6-2.6); Potassium 3.9 mmol/L (3.5-5.1)
[2021-07-22 06:30] LABS: BUN/Creatinine Ratio 7.3; Bilirubin, Total 0.2 mg/dL (0.2-1.0); Phosphorus 2.4 mg/dL (2.5-4.90); Total Protein 5.1 g/dL (6.4-8.2)
[2021-07-22 09:00] VITALS: BP 111/66
[2021-07-22] MEDS: POTASSIUM CHL 20 Meq TABLET PO SCH ×3 (09:16→21:39)
[2021-07-22] MEDS: FAMOTIDINE 20 MG TAB PO SCH (10:10)
[2021-07-22] MEDS: FLORASTOR (S. BOULARDII) 250 MG CAP PO SCH ×2 (10:10→21:38)
[2021-07-22] MEDS: CHOLESTYRAMINE 4 GM POWDER GT SCH (10:10)
[2021-07-22] MEDS: ENOXAPARIN SOD 60 MG/0.6 ML SYRINGE SC SCH ×2 (10:11→21:39)
[2021-07-22 13:00] VITALS: BP 110/59
[2021-07-22 17:00] VITALS: BP 121/65
[2021-07-22 21:50] VITALS: BP 111/73
[2021-07-23 03:57] VITALS: BP 112/68
[2021-07-23] MEDS: NYSTATIN (MOUTH-THROAT) 500,000 UNITS/5 ML SUSP MT SCH ×2 (06:23→11:33)
[2021-07-23] MEDS: VANCOMYCIN HCL 500MG/5ML ORAL SOL PO SCH ×2 (06:24→11:34)
[2021-07-23 09:00] VITALS: BP 112/60
[2021-07-23] MEDS: CHOLESTYRAMINE 4 GM POWDER GT SCH (10:17)
[2021-07-23] MEDS: FLORASTOR (S. BOULARDII) 250 MG CAP PO SCH (10:17)
[2021-07-23] MEDS: FAMOTIDINE 20 MG TAB PO SCH (10:17)
[2021-07-23] MEDS: POTASSIUM CHL 20 Meq TABLET PO SCH (10:17)
[2021-07-23] MEDS: ENOXAPARIN SOD 60 MG/0.6 ML SYRINGE SC SCH (10:17)
[2021-07-23] MEDS ORDERED: ARTIFICIAL TEARS 15ml EACHEYE PRN (12:00)
== END 2021-07-23 14:45 | disposition home or self-care (01) | DRG 371 ==
LOC: ER 04:16 → OVERFLOW 08:31 → WEST WING 13:10
PROVIDERS: ADMIT Nurse Practitioner Acute Care; ATTEND Internal Medicine
PROC: 05HF33Z Insertion of Infusion Device into Left Cephalic Vein, Percutaneous Approach (ICD-10-PCS; principal; 2021-07-17)
PROC: B54NZZA Ultrasonography of Left Upper Extremity Veins, Guidance (ICD-10-PCS; 2021-07-17)
DX: A04.72 Enterocolitis due to Clostridium difficile, not specified as recurrent (principal); E43 Unspecified severe protein-calorie malnutrition; C17.0 Malignant neoplasm of duodenum; D61.818 Other pancytopenia; Z68.1 Body mass index [BMI] 19.9 or less, adult; D70.1 Agranulocytosis secondary to cancer chemotherapy; D50.9 Iron deficiency anemia, unspecified; D69.59 Other secondary thrombocytopenia; E87.6 Hypokalemia; B37.9 Candidiasis, unspecified; K21.9 Gastro-esophageal reflux disease without esophagitis; Z20.822 Contact with and (suspected) exposure to COVID-19; T45.1X5A Adverse effect of antineoplastic and immunosuppressive drugs, initial encounter; Y92.89 Other specified places as the place of occurrence of the external cause; Z80.0 Family history of malignant neoplasm of digestive organs; Z85.068 Personal history of other malignant neoplasm of small intestine; Z86.711 Personal history of pulmonary embolism; Z86.718 Personal history of other venous thrombosis and embolism; Z88.1 Allergy status to other antibiotic agents; Z90.49 Acquired absence of other specified parts of digestive tract
CPT/HCPCS: 36415; 80048; 80053; 81001; 82040; 82962; 83605; 83690; 83735; 84100; 84132; 84478; 85007; 85025; 85027; 85610; 85730; 87086; 87426; 87493; 93005; 96365; 96366; 96375; C9113; G0378; J1815; J2001; J2405; J3480; J3490